=== PATIENT | male | born 1945 | race Caucasian/White ===

== ENCOUNTER → 2016-12-04 | Outpatient (CLI) | payer OTHER, MEDICARE ==
[~2016-12-04] MED LIST: /PANT40TA OR; /ZIAC5TA AD; ALLO100T PO; ASPI81TA45 OR; CIAL5TAB PO; COLA100C2 OR; DOCU250C PO; LASI20TA PO; LASI40TA OR; LOSA25TA8 PO; LYRICA PO; MECL25CH PO; MECL25TA2 OR; MULTTAB4 PO; NAPR375T PO; NIZO2SHA TOP; NIZORAL 2% TOP; OXYBPOW PO; PENC1CR TOP; PRAV20TA2 OR; PROZ20CA OR; SING10TA32 PO; VIAG100T PO; VICO5TAB OR; VICODIN PO; ZEST20TA8 PO; [UNRECOGNIZED DRUG - OTHER]
[2016-12-04 17:14] LABS: ANION GAP 7 MEQ/L (8-16); BLOOD UREA NITROGEN 29 MG/DL (7-18); CALCIUM LEVEL 8.7 MG/DL (8.8-10.2); CARBON DIOXIDE LEVEL 33 MEQ/L (21-32); CHLORIDE LEVEL 105 MEQ/L (98-107); CREATININE FOR GFR 1.22 MG/DL (0.70-1.30); GLOMERULAR FILTRATION RATE > 60.0 (>42); GLUCOSE, FASTING 121 MG/DL (83-110); PHOSPHORUS LEVEL 2.9 MG/DL (2.5-4.9); POTASSIUM SERUM 3.8 MEQ/L (3.5-5.1); SODIUM LEVEL 145 MEQ/L (136-145)
[2016-12-04 18:16] LABS: BASO % 0.7 % (0.0-1.0); EOS # 0.1 K/mm3 (0.0-0.50); EOS % 1.8 % (0.0-3.0); LARGE UNSTAINED CELL # 0.1 K/mm3 (0.0-0.4); LARGE UNSTAINED CELL % 1.8 % (0.0-4.0); LYMPH # 2.1 K/mm3 (1.5-4.5); MEAN CORPUSCULAR HEMOGLOBIN 32.9 pg (27.0-33.0); MEAN CORPUSCULAR VOLUME 102.6 fl (80.0-96.0); MONO # 0.4 K/mm3 (0.0-0.8); MONO % 5.5 % (0.0-5.0); NEUTROPHILS # 4.6 K/mm3 (1.8-7.7); NEUTROPHILS % 63.2 % (36.0-66.0); PLATELET COUNT, AUTOMATED 167 k/mm3 (150-450); WHITE BLOOD COUNT 7.2 K/mm3 (4.0-10.0)
== END ==
LOC: M WUC 13:31
PROVIDERS: ATTEND Physician Assistant
DX: R07.2 Precordial pain (principal)

== ENCOUNTER → 2017-04-15 | Outpatient (CLI) | payer OTHER, MEDICARE | LOC: M SMT 09:24 | PROVIDERS: ATTEND Urology | DX: R35.0 Frequency of micturition (principal) ==

== ENCOUNTER → 2017-07-02 | Outpatient (CLI) | payer OTHER, MEDICARE ==
[~2017-07-02] MED LIST changes: +BENT10CA PO; +CHLO125TA PO; +DEXI60CA2 PO; -DOCU250C PO; +DOCU250C7 PO; +LOSA100T36 PO; +MECL1CHW2 PO; -MECL25CH PO; +MYRB50TA PO; +NAPR500T3 PO
--- NOTE | 2017-07-03 09:46 | REP ---
Clinical: Transient ischemic attack with history of hypertension. Technique: Bustamante scale and color Doppler evaluation using linear high frequency transducer Findings: Two-dimensional bustamante scale and color images demonstrate moderate intimal thickening and mixed atheromatous plaquing extending to the carotid bulbs and proximal internal carotid arteries (right greater than left). Normal laminar flow is appreciated bilaterally with minimal narrowing at the right carotid bulb/proximal internal carotid artery. Color Doppler interrogation demonstrates normal arterial wave patterns and velocities with mild spectral broadening. Normal flow direction is appreciated in the bilateral vertebral arteries. RIGHT (cm/s) LEFT (cm/s) ICA peak systolic velocity 43.3 53.2 ICA diastolic velocity 19.5 16.2 ECA peak systolic velocity 83.3 93.2 CCA peak systolic velocity 71.5 88.9 ICA/CCA ratio 0.6 0.6 Impression: No hemodynamically significant areas of narrowing or stenosis appreciated. Based on set standards narrowing falls within the less than 50% range (R > L). Signed by Jace Berrios MD 07/03/2017 09:37 A
== END ==
LOC: M RAD 16:11
PROVIDERS: ATTEND Ophthalmology
DX: I10 Essential (primary) hypertension (principal); Z86.73 Personal history of transient ischemic attack (TIA), and cerebral infarction without residual deficits

== ENCOUNTER → 2017-12-03 | Outpatient (CLI) | payer OTHER, MEDICARE | LOC: M PLARAD 08:52 | DX: M47.812 Spondylosis without myelopathy or radiculopathy, cervical region (principal) | CPT/HCPCS: 72141 ==

== ENCOUNTER → 2018-01-07 | Outpatient (REF) | payer MEDICARE, OTHER ==
[2018-01-07 13:40] LABS: APPEARANCE, URINE CLEAR (CLEAR); BACTERIA, URINE AUTO NEGATIVE (NEGATIVE); BILIRUBIN, URINE AUTO NEGATIVE (NEGATIVE); BLOOD, URINE BLOOD NEGATIVE (NEGATIVE); COLOR, URINE YELLOW (YELLOW); GLUCOSE, URINE (UA) AUTO NEGATIVE (NEGATIVE); KETONE, URINE AUTO NEGATIVE (NEGATIVE); LEUKOCYTE ESTERASE, URINE AUTO NEGATIVE (NEGATIVE); MUCUS, URINE SMALL (NEGATIVE); NITRITE, URINE AUTO NEGATIVE (NEGATIVE); PROTEIN, URINE AUTO NEGATIVE (NEGATIVE); RBC, URINE AUTO 0 /HPF (0-3); SPECIFIC GRAVITY URINE AUTO 1.016 (1.002-1.035); SQUAMOUS EPITHELIAL CELL UR AU 0 /HPF (0-6); UROBILINOGEN, URINE AUTO 0.2 mg/dL (0.0-2.0); WBC, URINE AUTO 1 /HPF (0-3)
== END ==
LOC: M SMT 13:12
DX: N40.1 Benign prostatic hyperplasia with lower urinary tract symptoms (principal)
CPT/HCPCS: 81001

== ENCOUNTER → 2018-01-10 | Outpatient (CLI) | payer OTHER, MEDICARE | LOC: M PLARAD 10:03 | DX: M51.37 Other intervertebral disc degeneration, lumbosacral region (principal); M48.061 Spinal stenosis, lumbar region without neurogenic claudication; M51.27 Other intervertebral disc displacement, lumbosacral region | CPT/HCPCS: 72148 ==

== ENCOUNTER → 2018-03-03 | Outpatient (REF) | payer OTHER, MEDICARE ==
[2018-03-03 12:44] LABS: HEMATOCRIT 44.5 % (42.0-52.0); HEMOGLOBIN 15.2 g/dl (13.5-17.5); MEAN CORPUSCULAR HEMOGLOBIN 33.7 pg (27.0-33.0); MEAN CORPUSCULAR HGB CONC 34.2 g/dl (32.0-36.5); MEAN CORPUSCULAR VOLUME 98.7 fl (80.0-96.0); PLATELET COUNT, AUTOMATED 167 10^3/uL (150-450); RED BLOOD COUNT 4.51 10^6/uL (4.30-6.10); WHITE BLOOD COUNT 7.6 10^3/uL (4.0-10.0)
[2018-03-03 14:15] LABS: THYROID STIMULATING HORMONE 0.808 uIU/ML (0.358-3.740)
[2018-03-03 14:15] LABS: MAGNESIUM LEVEL 2.2 MG/DL (1.8-2.4)
== END ==
LOC: M LABDRAW1 12:03
DX: R00.2 Palpitations (principal)

== ENCOUNTER 2018-03-21 16:02 | Emergency (ER) | payer OTHER, MEDICARE | END 2018-03-21 19:00 | disposition home or self-care (01) | LOC: M ED 16:02 | DX: S83.92XA Sprain of unspecified site of left knee, initial encounter (principal); X50.1XXA Overexertion from prolonged static or awkward postures, initial encounter; Y92.098 Other place in other non-institutional residence as the place of occurrence of the external cause; I10 Essential (primary) hypertension; Z88.8 Allergy status to other drugs, medicaments and biological substances; Z79.899 Other long term (current) drug therapy; Z79.82 Long term (current) use of aspirin | CPT/HCPCS: 73564 ==

== ENCOUNTER → 2018-04-08 | Outpatient (REF) | payer OTHER, MEDICARE ==
[2018-04-08 11:06] LABS: BASO % 0.4 % (0.0-1.0); EOS # 0.1 10^3/uL (0.0-0.50); EOS % 1.7 % (0.0-3.0); HEMATOCRIT 44.6 % (42.0-52.0); IMMATURE GRANULOCYTE % 0.3 % (0-3.0); LYMPH # 1.9 10^3/uL (1.5-4.5); LYMPH % 25.7 % (24.0-44.0); MEAN CORPUSCULAR HEMOGLOBIN 32.8 pg (27.0-33.0); MEAN CORPUSCULAR HGB CONC 33.6 g/dl (32.0-36.5); MEAN CORPUSCULAR VOLUME 97.6 fl (80.0-96.0); MONO # 0.7 10^3/uL (0.0-0.8); MONO % 9.6 % (0.0-5.0); NEUTROPHILS # 4.5 10^3/uL (1.8-7.7); NEUTROPHILS % 62.3 % (36.0-66.0); PLATELET COUNT, AUTOMATED 183 10^3/uL (150-450); RED BLOOD COUNT 4.57 10^6/uL (4.30-6.10); RED CELL DISTRIBUTION WIDTH 12.8 % (11.5-14.5); WHITE BLOOD COUNT 7.2 10^3/uL (4.0-10.0)
[2018-04-08 11:16] LABS: ANION GAP 8 MEQ/L (8-16); BLOOD UREA NITROGEN 31 MG/DL (7-18); CALCIUM LEVEL 9.1 MG/DL (8.8-10.2); CARBON DIOXIDE LEVEL 30 MEQ/L (21-32); CHLORIDE LEVEL 102 MEQ/L (98-107); CREATININE FOR GFR 1.21 MG/DL (0.70-1.30); GLOMERULAR FILTRATION RATE > 60.0 (>42); GLUCOSE, FASTING 104 MG/DL (70-100); SODIUM LEVEL 140 MEQ/L (136-145)
== END ==
LOC: M LABDRAW1 09:03
DX: M48.061 Spinal stenosis, lumbar region without neurogenic claudication (principal)

== ENCOUNTER → 2018-04-22 | Outpatient (CLI) | payer OTHER, MEDICARE | LOC: M SMT 15:02 | DX: Z12.5 Encounter for screening for malignant neoplasm of prostate (principal) | CPT/HCPCS: G0103 ==

== ENCOUNTER → 2018-04-22 | Outpatient (CLI) | payer OTHER, MEDICARE | LOC: M PLARAD 10:23 | DX: S83.282A Other tear of lateral meniscus, current injury, left knee, initial encounter (principal); X58.XXXA Exposure to other specified factors, initial encounter; Y92.89 Other specified places as the place of occurrence of the external cause | CPT/HCPCS: 73721 ==

== ENCOUNTER → 2018-05-13 | Outpatient (CLI) | payer OTHER, MEDICARE | LOC: M PLARAD 07:58 | DX: M48.061 Spinal stenosis, lumbar region without neurogenic claudication (principal); Z53.8 Procedure and treatment not carried out for other reasons ==

== ENCOUNTER → 2018-05-19 | Outpatient (CLI) | payer OTHER, MEDICARE | LOC: M RAD 07:51 | DX: M48.061 Spinal stenosis, lumbar region without neurogenic claudication (principal); M51.26 Other intervertebral disc displacement, lumbar region | CPT/HCPCS: 72148 ==

== ENCOUNTER → 2018-12-16 | Outpatient (CLI) | payer BC, MEDICARE, OTHER ==
[~2018-12-16] MED LIST changes: -LASI20TA PO; +LASI20TA3 PO; -LOSA100T36 PO; +LOSA100T50 PO; +LOSA25TA14 PO; -LOSA25TA8 PO; +NAPR-885 PO; -NAPR500T3 PO; +ONDA4TAB5
--- NOTE | 2018-12-16 14:24 | REP ---
MRI PELVIS: MRI pelvis performed utilizing multiple sequences in the axial, coronal, and sagittal planes. No IV contrast was administered. Images are centered on the sacrum and coccyx. No abnormal bone marrow signal seen in the visualized osseous structures. There is no occult fracture. Sacroiliac joints demonstrate no abnormal signal. No adenopathy or mass is seen in the deep pelvis. No fluid or fluid collection is seen. IMPRESSION: Negative MRI sacrum and coccyx region. Unreviewed
== END ==
LOC: M PLARAD 11:57
PROVIDERS: ATTEND Physical Medicine & Rehabilitation
DX: M48.061 Spinal stenosis, lumbar region without neurogenic claudication (principal)

== ENCOUNTER → 2019-05-12 | Outpatient (CLI) | payer OTHER ==
[~2019-05-12] MED LIST changes: -/PANT40TA OR; -/ZIAC5TA AD; +ASPI81CH49 PO; +CHOL100029 PO; +CYCL10TA PO; +MECL1CHW PO; -MECL1CHW2 PO; +MOBI4TAB PO; +ONDA-83 PO; -ONDA4TAB5; +PANT40TA3 PO; +PRED20TA PO; +PROT1TAB2 OR; +ROSU10TA6 PO; +TADA5TAB; +ZIAC1TAB AD; +tylenol arthritis
--- NOTE | 2019-05-17 16:19 | REPVR ---
EXAM: MR Lumbar Spine Without Contrast. EXAM DATE/TIME: 05/12/2019 12:00 PM CLINICAL HISTORY: 73 years old, male; Low back pain; Additional info: Spinal stenosis TECHNIQUE: Imaging protocol: Multiplanar magnetic resonance images of the lumbar spine without intravenous contrast. COMPARISON: MRI-Spine, L.S. without con 05/19/2018 8:48 AM FINDINGS: Vertebrae: Multiple age-indeterminate Schmorl's nodes demonstrated from L2-L4 with loss of vertebral height at L4. Spinal cord: Unremarkable. L1-L2: No significant disc disease. No significant spinal stenosis. L2-L3: There is a moderate to severe central spinal stenosis at L2-3 secondary to diffuse annular bulging, thickened ligamentum flavum and facet joint arthropathy. Mild left-sided foraminal stenosis. No lateral recess stenosis. Marked annular bulging bilaterally may impinge on the exiting nerve roots far laterally. L3-L4: There is a moderate to severe central spinal stenosis at L3-4 secondary to diffuse annular bulging, thickened ligamentum flavum and facet joint arthropathy. Mild bilateral foraminal stenosis. No lateral recess stenosis. Marked annular bulging bilaterally maintained on the exiting nerve roots far laterally. L4-L5: There is a mild central spinal stenosis at L4-5 secondary to diffuse annular bulging, thickened ligamentum flavum and facet joint arthropathy. Mild bilateral foraminal stenosis. No lateral recess stenosis. Marked annular bulge may impinge on the right exiting nerve root far laterally. L5-S1: Diffusely bulging annulus at L5-S1. Bilateral facet joint arthropathy. No significant spinal stenosis. Severe foraminal stenosis on the right and moderate foraminal stenosis on the left. Mild lateral recess stenosis. Marked annular bulge may impinge on the right exiting nerve root far laterally. Other bones/joints: Decreased marrow signal on T1-weighted images may indicate underlying chronic anemia or myeloproliferative disorder. Soft tissues: Unremarkable. IMPRESSION: 1. Decreased marrow signal on T1-weighted images may indicate underlying chronic anemia or myeloproliferative disorder. 2. Diffuse degenerative spondylosis in the lumbar spine with moderate to severe central spinal stenoses at L2-3, L3-4 and L4-5. Multilevel foraminal stenosis demonstrated as described above as well as marked annular bulging at multiple levels which may impinge on the exiting nerve roots far laterally as described above. Electronically signed by: James Caballero On 05/17/2019 16:19:04 PM
== END ==
LOC: M PLARAD 10:56
PROVIDERS: ATTEND Physical Medicine & Rehabilitation
DX: M51.46 Schmorl's nodes, lumbar region (principal); M48.061 Spinal stenosis, lumbar region without neurogenic claudication; M51.26 Other intervertebral disc displacement, lumbar region; M51.27 Other intervertebral disc displacement, lumbosacral region

== ENCOUNTER → 2019-06-05 | Outpatient (CLI) | payer MEDICARE ==
[~2019-06-05] MED LIST changes: -CHOL100029 PO; -CYCL10TA PO; -MOBI4TAB PO; -ONDA-83 PO; +ONDA4TAB5 PO; -PRED20TA PO; -TADA5TAB; +VITAD1000T PO; -tylenol arthritis
--- NOTE | 2019-06-05 14:02 | REP ---
REASON: Bone marrow disorder. AP view of the skull shows no evidence of a lytic or blastic lesion. AP and lateral views of the cervical spine show degenerative changes with bridging anterior osteophytosis seen C4-5 and C5-6. There is no evidence of a lytic or blastic lesion. Lateral view of the skull shows a single lucency at the vertex possibly a venous jordan. AP thoracolumbar spine shows syndesmophyte formation throughout the right side of the thoracolumbar spine. There is disc space narrowing at every level. AP pelvis shows degenerative changes involving the hips. Right femur shows no acute fracture or destructive osseous lesions. Hip and knee degenerative changes are present. AP view of the left femur shows hip and knee degenerative changes. There is no destructive osseous lesion. AP radiograph of the humerus bilaterally shows chronic changes. No destructive osseous lesion is noted. Lateral views or the thoracolumbar spine shows diffuse disc space narrowing at every level. There is no vertebral body collapse. Degenerative facet joint changes are seen through the lumbar spine bilaterally. IMPRESSION: 1. Chronic changes involving the thoracolumbar spine as described above suggestive of DISH. This should be correlated clinically. 2. Single lucency seen in the vertex of the skull on the lateral view as described above. Consider followup with CT. 3. Other chronic changes as described above. Electronically Signed by Sandro Stone DO 06/05/2019 02:21 P
== END ==
LOC: M LAB 10:00
PROVIDERS: ATTEND Internal Medicine
DX: R93.7 Abnormal findings on diagnostic imaging of other parts of musculoskeletal system (principal)

== ENCOUNTER 2019-06-07 11:55 | Day surgery (SDC) | payer MEDICARE ==
[~2019-06-07] VITALS: Ht 177.8 cm; Wt 124.6 kg
[~2019-06-07 11:55] MED LIST changes: +CHOL100029 PO; +LIDOCAINE 2% INJ 100 MG/5 ML SDV (FOR ANES.) As Ordered ONE; +ONDA-83 PO; -ONDA4TAB5 PO; -VITAD1000T PO; +propofoL 200 MG/20 ML VIAL As Ordered ONE
[2019-06-07] MEDS ORDERED: propofoL 200 MG/20 ML VIAL As Ordered ONE (13:08)
[2019-06-07] MEDS ORDERED: NS 1,000 ML IV SCH (13:15)
[2019-06-07 14:40] VITALS: BP 169/80
--- NOTE | 2019-06-12 08:45 | MEDONCPN ---
DATE OF SERVICE: 06/07/2019 REASON FOR VISIT: Bone marrow biopsy and procedure to be done under sedation in the OR. TIME: 2:00 p.m. INDICATION: As per previous report. A time out and call to confirm patient's name and date of , procedure site and site of biopsy. Safety procedures followed. Performed by self and assisted by Dr. Nalini Stewart. Informed consent signed by the patient. Aspiration and biopsy site, in the prone position to palpate the left iliac crest after having the patient sedated and the patient was then in position. The procedure was deemed unable to be done in the OR and he requires interventional radiology to perform the procedure with sedation. The patient was seen and he was advised that we aborted the procedure, and my staff and Dr. Stewart, we counseled the patient and the spouse. They both voiced understanding and agreed with the above plan. PREPARATION AND TECHNIQUE: Sterile preparation of the site with Betadine and ChloraPrep and draped to expose the aspirate/biopsy area, local anesthesia with 2% lidocaine. Electronically Signed by Matt Michelle MD 06/18/2019 11:34 P DD: Matt Michelle MD 06/07/2019 04:44 P DT: pinky 06/09/2019 10:47 A CC:
== END 2019-06-07 14:42 | disposition home or self-care (01) ==
LOC: M OPP 11:55
PROVIDERS: ATTEND Internal Medicine
DX: D47.2 Monoclonal gammopathy (principal); R93.7 Abnormal findings on diagnostic imaging of other parts of musculoskeletal system; I10 Essential (primary) hypertension; E78.5 Hyperlipidemia, unspecified; K58.9 Irritable bowel syndrome, unspecified; K21.9 Gastro-esophageal reflux disease without esophagitis; M19.90 Unspecified osteoarthritis, unspecified site; M48.00 Spinal stenosis, site unspecified; G47.30 Sleep apnea, unspecified; R35.0 Frequency of micturition; Z88.8 Allergy status to other drugs, medicaments and biological substances; Z79.82 Long term (current) use of aspirin; Z79.899 Other long term (current) drug therapy

== ENCOUNTER → 2019-06-09 | Outpatient (CLI) | payer MEDICARE ==
[~2019-06-09] MED LIST changes: +CYCL10TA PO; -LIDOCAINE 2% INJ 100 MG/5 ML SDV (FOR ANES.) As Ordered ONE; +MOBI4TAB PO; +PRED20TA PO; +TADA5TAB; -propofoL 200 MG/20 ML VIAL As Ordered ONE; +tylenol arthritis
--- NOTE | 2019-06-09 09:46 | REP ---
LEFT UPPER QUADRANT ULTRASOUND: Real-time sonographic of the left upper quadrant performed. Spleen is normal in size with no intrinsic abnormality, measuring 11.3 x 3.7 x 10.3 cm. Left kidney is normal in size and echotexture measuring 12.3 x 6.3 x 5.4 cm. Multiple left renal cysts are seen, with a septated cyst in the upper pole 4.4 x 3.6 x 5.3 cm and two adjacent upper pole cysts 1.2 x 1.8 x 1.4 cm and 1.5 x 1.3 x 1.4 cm. No free fluid is seen in the left upper quadrant. IMPRESSION: No evidence of splenomegaly. Electronically Signed by Cb Bustamante MD 06/12/2019 11:13 A
== END ==
LOC: M RAD 07:54
PROVIDERS: ATTEND Internal Medicine
DX: Z86.2 Personal history of diseases of the blood and blood-forming organs and certain disorders involving the immune mechanism (principal)

== ENCOUNTER 2019-08-29 10:55 | Emergency (ER) | payer MEDICARE ==
[~2019-08-29] VITALS: Ht 177.8 cm; Wt 124.2 kg
[~2019-08-29 10:55] MED LIST changes: -CYCL10TA PO; -MOBI4TAB PO; -ONDA-83 PO; +ONDA4TAB5 PO; -PRED20TA PO; -TADA5TAB; -tylenol arthritis
[2019-08-29 10:56] VITALS: BP 133/72
[2019-08-29] MEDS ORDERED: TADA5TAB (11:04)
[2019-08-29] MEDS ORDERED: tylenol arthritis (11:05)
[2019-08-29] MEDS ORDERED: CYCL10TA PO (11:48)
[2019-08-29] MEDS ORDERED: PRED20TA PO (11:48)
[2019-08-29] MEDS ORDERED: MOBI4TAB PO (11:48)
== END 2019-08-29 11:56 | disposition home or self-care (01) ==
LOC: M ED 10:55
DX: M54.2 Cervicalgia (principal); M62.830 Muscle spasm of back; Z88.8 Allergy status to other drugs, medicaments and biological substances; I10 Essential (primary) hypertension; I95.9 Hypotension, unspecified; G47.30 Sleep apnea, unspecified; M10.9 Gout, unspecified; Z79.899 Other long term (current) drug therapy; Z79.82 Long term (current) use of aspirin

== ENCOUNTER → 2020-05-02 | Outpatient (CLI) | payer MEDICARE ==
[~2020-05-02] MED LIST changes: +ALBU8.5H INH; +COLA100C5 PO; +CRES10TA PO; +CYCL-707 PO; +EQ 8650T PO; +FLON1SPR; +MECL-86 PO; +MOBI4TAB PO; +MULT1TAB74 PO; +ONDA-83 PO; -ONDA4TAB5 PO; +PRED20TA PO; +TADA5TAB PO; +VITAD1000T PO; +tylenol arthritis
== END ==
LOC: M LABSMTC 12:45
PROVIDERS: ATTEND Anesthesiology
DX: Z03.818 Encounter for observation for suspected exposure to other biological agents ruled out (principal); Z11.59 Encounter for screening for other viral diseases
CPT/HCPCS: C9803; U0003

== ENCOUNTER 2020-05-07 06:57 | Day surgery (SDC) | payer MEDICARE ==
[~2020-05-07] VITALS: Ht 177.8 cm; Wt 126.1 kg
[~2020-05-07 06:57] MED LIST changes: +D31000TA2 PO; -FLON1SPR; +FLON1SPR NARES; +PANT40TA29 PO; -PANT40TA3 PO; -VITAD1000T PO
[2020-05-07] MEDS ORDERED: NS 1,000 ML IV ONE (07:00)
[2020-05-07] MEDS ORDERED: LIDOCAINE 2% 100MG/5ML SDV (FOR ANES.) As Ordered ONE (07:07)
[2020-05-07] MEDS ORDERED: propofoL 200 MG/20 ML VIAL As Ordered ONE (07:07)
[2020-05-07] MEDS ORDERED: fentaNYL 100 MCG/2 ML INJECTION (J3010) As Ordered ONE (08:06)
--- NOTE | 2020-05-07 08:23 | ROOR ---
Patient Name: Kal Eason Procedure Date: 05/07/2020 8:04 AM Date of : 1945 Age: 74 Room: [facility] Gender: Male Note Status: Finalized Procedure: Upper Endoscopy + Biopsies Indications: Heartburn, Follow-up of Barrios's esophagus Providers: Shawn Tan MD Referring MD: CHRISTOFER MCGUIRE MD Requesting Provider: Medicines: Monitored Anesthesia Care Complications: No immediate complications. Procedure: Pre-Anesthesia Assessment: - The heart rate, respiratory rate, oxygen saturations, blood pressure, adequacy of pulmonary ventilation, and response to care were monitored throughout the procedure. The Endoscope was introduced through the mouth, and advanced to the second part of duodenum. The upper GI endoscopy was accomplished without difficulty. The patient tolerated the procedure well. Findings: The Z-line was variable and was found 40 cm from the incisors. Multiple biopsies were obtained with cold forceps for evaluation to rule out Barrios's Esophagus randomly at the gastroesophageal junction. A small hiatal hernia was present. No other significant abnormalities were identified in a careful examination of the stomach. The exam of the duodenum was otherwise normal. Impression: - Z-line variable, 40 cm from the incisors. - Small hiatal hernia. - Multiple biopsies were obtained at the gastroesophageal junction. - The examination was otherwise normal. Recommendation: - Patient has a contact number available for emergencies. The signs and symptoms of potential delayed complications were discussed with the patient. Return to normal activities tomorrow. Written discharge instructions were provided to the patient. - High fiber diet. - Discharge patient to home. - Follow an antireflux regimen. - Continue present medications. - Await pathology results. - Telephone GI clinic for pathology results in 1 week. - The findings and recommendations were discussed with the patient. Shawn Tan MD Shawn Tan MD 05/07/2020 8:22:27 AM Electronically signed by Shawn Tan MD Number of Addenda: 0 Note Initiated On: 05/07/2020 8:04 AM Estimated Blood Loss: Estimated blood loss: none.
[2020-05-07 08:40] VITALS: BP 14/76
== END 2020-05-07 08:55 | disposition home or self-care (01) ==
LOC: M OPP 06:57
PROVIDERS: ATTEND Internal Medicine Gastroenterology
DX: K22.8 Other specified diseases of esophagus (principal); K44.9 Diaphragmatic hernia without obstruction or gangrene; K22.70 Barrett's esophagus without dysplasia; I10 Essential (primary) hypertension; G47.30 Sleep apnea, unspecified; Z79.82 Long term (current) use of aspirin; Z79.899 Other long term (current) drug therapy; Z88.8 Allergy status to other drugs, medicaments and biological substances
CPT/HCPCS: 43239; 88305; J3010

== ENCOUNTER 2020-06-21 09:07 | Observation (INO) | payer MEDICARE ==
[~2020-06-21] VITALS: Ht 177.8 cm; Wt 76.3 kg
[2020-06-21] MEDS ORDERED: [UNRECOGNIZED DRUG - CODE] PO (09:39)
[2020-06-21 09:48] LABS: BASO % 0.4 % (0.0-1.0); EOS # 0.2 10^3/uL (0.0-0.5); EOS % 1.6 % (0.0-3.0); HEMATOCRIT 46.9 % (42.0-52.0); HEMOGLOBIN 16.1 g/dl (13.5-17.5); LYMPH # 1.8 10^3/uL (1.5-5.0); LYMPH % 18.8 % (24.0-44.0); MEAN CORPUSCULAR HEMOGLOBIN 33.8 pg (27.0-33.0); MEAN CORPUSCULAR HGB CONC 34.3 g/dl (32.0-36.5); MEAN CORPUSCULAR VOLUME 98.5 fl (80.0-96.0); MONO # 0.8 10^3/uL (0.0-0.8); MONO % 8.1 % (0.0-5.0); NEUTROPHILS # 6.6 10^3/uL (1.5-8.5); NEUTROPHILS % 70.7 % (36.0-66.0); PLATELET COUNT, AUTOMATED 188 10^3/uL (150-450); RED BLOOD COUNT 4.76 10^6/uL (4.30-6.10); WHITE BLOOD COUNT 9.4 10^3/uL (4.0-10.0)
[2020-06-21] MEDS ORDERED: ONDANSETRON 4MG/2ML VIAL IV ONE (10:00)
--- NOTE | 2020-06-21 10:07 | REPVR ---
PROCEDURE INFORMATION: Exam: CT Head Without Contrast Exam date and time: 06/21/2020 9:47 AM Age: 74 years old Clinical indication: Dizziness; Additional info: Off balance TECHNIQUE: Imaging protocol: Computed tomography of the head without contrast. Radiation optimization: All CT scans at this facility use at least one of these dose optimization techniques: automated exposure control; mA and/or kV adjustment per patient size (includes targeted exams where dose is matched to clinical indication); or iterative reconstruction. COMPARISON: No relevant prior studies available. FINDINGS: Brain: There is no acute intracranial hemorrhage. No extra-axial fluid collection. No evidence of acute infarct. Bustamante white differentiation is intact. There is no evidence of mass. There is no mass effect or midline shift. Ventricles: No ventriculomegaly. Bones/joints: No acute fracture. Sinuses: Unremarkable as visualized. No acute sinusitis. Mastoid air cells: Mastoid air cells and middle ear cavities are well developed and well aerated. Vasculature: There are carotid arteries calcifications. Soft tissues: Unremarkable as visualized. IMPRESSION: No evidence of acute intracranial abnormality. Electronically signed by: Kiersten Finnegan On 06/21/2020 10:07:43 AM
[2020-06-21 10:15] LABS: CALCIUM LEVEL 9.2 MG/DL (8.8-10.2); CREATININE FOR GFR 1.25 MG/DL (0.70-1.30); GLOMERULAR FILTRATION RATE 59.9 (>42); POTASSIUM SERUM 3.5 MEQ/L (3.5-5.1)
[2020-06-21] MEDS ORDERED: CHLORTHALIDONE 12.5MG PER 1/2 TABLET PO ONE (10:15)
[2020-06-21] MEDS ORDERED: LOSARTAN 50MG TABLET PO ONE (10:15)
[2020-06-21] MEDS ORDERED: diazePAM 10MG/2ML SYRINGE (J3360 PER 5MG) IV ONE (11:00)
--- NOTE | 2020-06-21 12:44 | REPVR ---
PROCEDURE INFORMATION: Exam: MR Head Without Contrast Exam date and time: 06/21/2020 12:27 PM Age: 74 years old Clinical indication: Dizziness and speech disturbance; Patient HX: Dizziness, slurred speech that has since subsided; Additional info: Ataxia TECHNIQUE: Imaging protocol: MR of the head without contrast. COMPARISON: CT Head without contrast 06/21/2020 9:49 AM FINDINGS: Brain: No significant white matter disease for patient's age. Diffusion images are normal. No evidence of acute infarction. No evidence of acute intracranial hemorrhage. No extra-axial fluid collections. Ventricles and cerebrospinal fluid spaces are normal in size and configuration for the patient's age. There is no evidence of mass-effect or midline shift. Flow voids of the [place] and major cerebral vascular structures appear intact. Craniocervical junction appears unremarkable, with normal position of cerebellar tonsils and no evidence of Chiari I malformation. Ventricles: No evidence of hydrocephalus Bones/joints: Unremarkable as visualized. Sinuses: Unremarkable as visualized. No acute sinusitis. Mastoid air cells: No significant mastoid effusion. Orbits: Unremarkable as visualized. No exophthalmos or evidence of mass. Soft tissues: Unremarkable as visualized. IMPRESSION: 1. Unremarkable brain MRI for age. No acute infarct, acute hemorrhage, or evidence of mass lesion. 2. Given the patient's clinical history and / or findings on MRI, MRA to assess the intracranial vascular system would be appropriate. Electronically signed by: Kiersten Finnegan On 06/21/2020 12:44:47 PM
--- NOTE | 2020-06-21 12:44 | REPVR ---
PROCEDURE INFORMATION: Exam: MR Angiogram Head Without Contrast, Arteries Exam date and time: 06/21/2020 12:27 PM Age: 74 years old Clinical indication: Dizziness and giddiness; Patient HX: Dizziness, slurred speech that has since subsided; Additional info: Ataxia TECHNIQUE: Imaging protocol: MR angiogram head without contrast. Exam focused on the arteries. 3D rendering (Not supervised by radiologist): MIP and/or 3D reconstructed images were created by the technologist. COMPARISON: CT Head without contrast 06/21/2020 9:49 AM FINDINGS: ANTERIOR CIRCULATION: Right internal carotid artery: Intracranial segment is patent with no significant stenosis. No aneurysm. Right middle cerebral artery: No occlusion or significant stenosis. No aneurysm. Right anterior cerebral artery: No occlusion or significant stenosis. No aneurysm. Left internal carotid artery: Intracranial segment is patent with no significant stenosis. No aneurysm. Left middle cerebral artery: No occlusion or significant stenosis. No aneurysm. Left anterior cerebral artery: No occlusion or significant stenosis. No aneurysm. POSTERIOR CIRCULATION: Right vertebral artery: No occlusion or significant stenosis. No aneurysm. Left vertebral artery: No occlusion or significant stenosis. No aneurysm. Basilar artery: No occlusion or significant stenosis. No aneurysm. Patent superior cerebellar arteries. Right posterior cerebral artery: No occlusion or significant stenosis. No aneurysm. Left posterior cerebral artery: No occlusion or significant stenosis. No aneurysm. IMPRESSION: No stenosis or occlusion. Unremarkable MRA. Electronically signed by: Kiersten Finnegan On 06/21/2020 12:44:17 PM
[2020-06-21] MEDS ORDERED: MECLIZINE 25 MG TABLET PO ONE (15:30)
[2020-06-21] MEDS ORDERED: CHLO25TA PO (16:03)
[2020-06-21] MEDS ORDERED: ASPI81TA26 PO (16:03)
[2020-06-21] MEDS ORDERED: ACETAMINOPHEN TAB 650MG DOSE (2X325MG) PO PRN (17:00)
[2020-06-21] MEDS ORDERED: diazePAM 5 MG TAB PO PRN (18:15)
[2020-06-21] MEDS ORDERED: PILL CUTTER 1 EACH XX PRN (18:30)
--- NOTE | 2020-06-21 18:36 | HPEPDOC ---
General Date of Admission Jun 21, 2020 at 09:08 Date of Service: Jun 21, 2020 Chief Complaint The patient is a 74-year-old male admitted with a reason for visit of Vertigo. History of Present Illness 74 year old man with history of meniere's disease, hypertension, presented to hospital due to vertigo that started yesterday morning. patient had a right knee injection as outpatient and then came home. He woke up with sudden onset of vertigo, lightheaded. He took dramamine, every 8 hours without much benefit. HE did not take his BP meds because he felt that if he drinks water, he will start to vomit which usually happens when he has an attack of meniere's. He thought he would improved but this morning, he continues to be dizzy and thus came to hospital. He has chronic tinnitus, and hearing loss. he denies any weakness, or numbness (aside from the chronic right leg numbness due to spinal stenosis). No chest pain, no dyspnea. No diarrhea. No vomiting. He did not take any new medications. No recent trauma. He did mention that back in january he heard a pop on the right jaw, and was told it could be his TMJ. No claudication noted. no headache. No confusion. His gait was said to be abnromal at home, he described it as "walking funny" like "drunk">. He does walk with a cane. PT was called for jack maneuvr, without any improvement. CT head and MRI brain and MRA was negative. HE was not comfortable ambulating thus ED called for admission. nurse informed me that patient ambulated to the bathroom with his cane well. I saw patient in ED, he is not in any distress. No vomiting noted. he says he is dizzy when turning his head but not laying still. No diplopia noted. No blurring of vision. Home Medications Scheduled Albuterol Sulfate (Albuterol Sulfate Hfa) 8.5 Gm Hfa.aer.ad, 2 PUFFS INH DAILY, (Reported) Allopurinol (Allopurinol) 100 Mg Tab, 100 MG PO DAILY, (Reported) Aspirin (Aspirin EC) 81 Mg Tablet.dr, 81 MG PO BID, (Reported) Chlorthalidone (Chlorthalidone) 25 Mg Tablet, 12.5 MG PO DAILY, (Reported) Cholecalciferol (Vitamin D3) (Vitamin D3) 1,000 Unit Tablet, 5,000 UNITS PO DAILY, (Reported) Docusate Sodium (Colace) 100 Mg Capsule, 100 MG PO BID, (Reported) Losartan Potassium (Losartan Potassium) 100 Mg Tab, 100 MG PO QHS, (Reported) Multivitamin (Multivitamins) 1 Each Tablet, 1 TAB PO DAILY, (Reported) Pantoprazole Sodium (Pantoprazole Sodium) 40 Mg Tablet.dr, 40 MG PO BID, (Reported) Rosuvastatin Calcium (Crestor) 10 Mg Tablet, 10 MG PO QHS, (Reported) Tadalafil (Tadalafil) 5 Mg Tablet, 5 MG PO DAILY, (Reported) Scheduled PRN Acetaminophen (8Hr Arthritis Pain Relief) 650 Mg Tablet.er, 650 MG PO Q8H PRN for PAIN, (Reported) Fluticasone Propionate (Flonase Allergy Relief) 9.9 Ml Mobile.susp, 50 MCG NARES DAILY PRN for CONGESTION, (Reported) Ondansetron HCl (Ondansetron HCl) 4 Mg Tab, 4 MG PO Q4H PRN for NAUSEA, (Reported) dimenhyDRINATE (Dramamine) 50 Mg Tab.chew, 50 MG PO Q2H PRN for DIZZINESS, (Reported) Allergies Coded Allergies: atorvastatin (Verified Adverse Reaction, Intermediate, JOINT PAIN, LEG CRAMPS, 04/30/20) fluvastatin (Verified Adverse Reaction, Intermediate, severe leg cramps, sore legs, 04/30/20) metoclopramide (Verified Adverse Reaction, Intermediate, PAIN IN STOMACH, 04/30/20) pregabalin (Verified Adverse Reaction, Intermediate, hand and feet swelling, 04/30/20) tizanidine (Verified Adverse Reaction, Intermediate, blurry vision , 04/30/20) Past Medical History Medical History PAST MEDICAL HISTORY: hypertension meniere's disease PAST SURGICAL HISTORY: bilateral shoulder surgery umbilical hernia repair right knee surgery no prior PCI A-FIB/CHADSVASC A-FIB History Current/History of A-Fib/PAF?: No Review of Systems Other systems 10 point review of system, reviewed with patient, negative except for HPI Vital Signs Vital Signs Date Time Temp Pulse Resp B/P (MAP) Pulse Ox O2 Delivery O2 Flow Rate FiO2 06/21/20 15:45 74 18 133/67 (89) 97 Room Air 06/21/20 09:23 96.2 general: awake, alert, oriented x 3. elderly man, appears as stated age. Not in respiratory distress HEENT: anicteric sclerae, no nasal discharges noted, no throat exudates noted EOM intact, no nystagmus, no facial asymmetry, right jaw tenderness noted EARS: TM intact bilaterally, no discharges no tragal tenderness, right tragal tenderness, no erythema Chest: clear breath sounds, no rales or wheezing noted. CVS s1 and s2 distinct, no murmurs, Abdomen: soft, obese, not tender, no rigidity noted, positive bowel sounds Extremities: No edema, no calf tenderness, no limitation of movement, no joint effusion. DEHYDRATOR: awake, alert, oriented x 3.no focal deficits, no dysmetria. CN II-XII grossly intact skin: warm , no lesions noted. Laboratory Data Labs 24H Laboratory Tests 2 06/21/20 09:27: Immature Granulocyte % (Auto) 0.4, Neutrophils (%) (Auto) 70.7H, Lymphocytes (%) (Auto) 18.8L, Monocytes (%) (Auto) 8.1H, Eosinophils (%) (Auto) 1.6, Basophils (%) (Auto) 0.4, Neutrophils # (Auto) 6.6, Lymphocytes # (Auto) 1.8, Monocytes # (Auto) 0.8, Eosinophils # (Auto) 0.2, Basophils # (Auto) 0.0, Nucleated Red Blood Cells % (auto) 0.0 06/21/20 09:29: Anion Gap 4L, Glomerular Filtration Rate 59.9, Calcium Level 9.2 CBC/BMP Laboratory Tests 06/21/20 09:27 06/21/20 09:29 Assessment/Plan reviewed labs and MRI/MRA ASSESSMENT: 1. Vertigo, could be due to meniere's disease, posterior stroke has been ruled out 2. Gait disturbance likely due to vergito 3. Hypertensive urgency, 4. obesity 38 kg/m2 PLANS: * admit patient to med surg. * telemetry due to dizziness to evaluate any arrythmias. * start on diazepam for prn dizziness. * meclizine to continue. * No intracranial aneurysm seen, no stenosis in intracranial arteries. * Resume home medications.- he received losartan and chlorthalidone in ED. BP much improved. * PT and OT eval, * if improved, and able to ambulate in AM, d/c home in Am. * FULL CODE * DVT: ambulate Plan / VTE VTE Prophylaxis Ordered?: No VTE Exclusion Mechanical Proph: Low Risk for VTE JAVIER ANDERSON MD Jun 21, 2020 18:33
[2020-06-21] MEDS ORDERED: ONDANSETRON 4MG/2ML VIAL IV PRN (19:30)
[2020-06-22] VITALS: BP 152/80
[2020-06-22 00:06] VITALS: BP 152/80
[2020-06-22 06:00] VITALS: BP 145/75
[2020-06-22] MEDS ORDERED: MECLIZINE 25 MG TABLET PO PRN (07:45)
[2020-06-22 08:38] VITALS: BP 143/84
[2020-06-22] MEDS ORDERED: ASPIRIN 81 MG ENTERIC TAB PO SCH (09:00)
[2020-06-22] MEDS ORDERED: LOSARTAN 50MG TABLET PO SCH (09:00)
[2020-06-22] MEDS ORDERED: CHLORTHALIDONE 12.5MG PER 1/2 TABLET PO SCH (09:00)
[2020-06-22 09:17] LABS: HEMATOCRIT 49.1 % (42.0-52.0); HEMOGLOBIN 16.1 g/dl (13.5-17.5); MEAN CORPUSCULAR HEMOGLOBIN 33.3 pg (27.0-33.0); MEAN CORPUSCULAR HGB CONC 32.8 g/dl (32.0-36.5); MEAN CORPUSCULAR VOLUME 101.4 fl (80.0-96.0); PLATELET COUNT, AUTOMATED 180 10^3/uL (150-450); RED BLOOD COUNT 4.84 10^6/uL (4.30-6.10); WHITE BLOOD COUNT 8.8 10^3/uL (4.0-10.0)
[2020-06-22 09:24] LABS: ALBUMIN 3.8 GM/DL (3.2-5.2); ALT/SGPT 23 U/L (12-78); BILIRUBIN,TOTAL 1.1 MG/DL (0.2-1.0); BLOOD UREA NITROGEN 26 MG/DL (7-18); CALCIUM LEVEL 9.2 MG/DL (8.8-10.2); CARBON DIOXIDE LEVEL 33 MEQ/L (21-32); CHLORIDE LEVEL 102 MEQ/L (98-107); GLOMERULAR FILTRATION RATE > 60.0 (>42); GLUCOSE, FASTING 100 MG/DL (70-100); SODIUM LEVEL 139 MEQ/L (136-145)
[2020-06-22] MEDS ORDERED: MECL-86 PO (11:24)
[2020-06-22] MEDS ORDERED: DIAZ5TAB PO (11:24)
--- NOTE | 2020-06-22 11:31 | DS.PDOC ---
Discharge Summary General Date of Admission Jun 21, 2020 at 09:08 Date of Discharge Discharge Summary PROCEDURES PERFORMED DURING STAY: MRI brain and MRA ADMITTING DIAGNOSES: 1. Dizziness DISCHARGE DIAGNOSES: 1. Vertigo, could be due to meniere's disease, posterior stroke has been ruled out 2. Gait disturbance likely due to vergito 3. Hypertensive urgency, 4. obesity 38 kg/m2 COMPLICATIONS/CHIEF COMPLAINT: Vertigo. HISTORY OF PRESENT ILLNESS: dizziness HOSPITAL COURSE: Mr Eason is a 74 year old man with known history of meniere's disease, hypertension, prsented to hospital due to worsening dizziness. Patient underwent CT head and MRI brain and MRA, negative, however, due to gait disturbance from dizziness admission. No ear findings. patient was noted to have hypertension on admission, was not able to take his meds, thus BP quite high on arrival, but once his meds were resumed it has improved. Patient was admitted and started on low dose valium to ease his dizziness which had helped improved it, that this morning, able to walk with walker now, no dizziness, no nausea or vomiting. No chest pain. Ambulated with PT today as well. Discussed that diazepam is only for as needed use and only short course therapy. No cute findings in MRI and MRA, no aneurysm or stroke. patient is stable for discharge to home, with out patient vestibula exercises PT. patietn is stable for discharge to home. DISCHARGE MEDICATIONS: Please see below. ALLERGIES: Please see below. PHYSICAL EXAMINATION ON DISCHARGE: VITAL SIGNS: Vital Sign - Last 24 Hours 06/21/20 06/21/20 06/22/20 06/22/20 12:45 15:45 00:06 06:00 Temp 97.7 98.2 Pulse 83 74 73 74 Resp 16 18 16 16 B/P (MAP) 170/79 (109) 133/67 (89) 152/80 (104) 145/75 (98) Pulse Ox 98 97 96 95 O2 Delivery Room Air Room Air Room Air Room Air 06/22/20 08:38 B/P (MAP) 143/84 patient seen at bedside, able to sit up without any assistance, no dizziness, no unsteadiness. HEENT: no nystagmus noted, no facial asymmetry Clear breath sounsd, no rales or wheezing CVS: s1 and s2 distinct, no murmurs noted Abdomen: soft, not tender, no rigidity noted Extremities: No edema, no calf tenderenss noted HARNESS BRUSHER: no focal deficits, CN II XII grossly intact, except for chronic hearing deficits LABORATORY DATA: Please see below. IMAGING: MRI Brain MRA PROGNOSIS: good ACTIVITY: [As tolerated] DIET: cardiac diet DISCHARGE PLAN: to home DISPOSITION: home DISCHARGE INSTRUCTIONS: 1. diazepam as needed. Only for short course 2. Meclizine ITEMS TO FOLLOWUP ON ON OUTPATIENT: 1. Follow up with outpatient PT DISCHARGE CONDITION: [Stable TIME SPENT ON DISCHARGE: 30 minutes Vital Signs/I&Os Vital Signs Date Time Temp Pulse Resp B/P (MAP) Pulse Ox O2 Delivery O2 Flow Rate FiO2 06/22/20 08:38 143/84 06/22/20 06:00 98.2 74 16 95 Room Air I&O- Last 24 Hours up to 6 AM 06/22/20 06:00 Intake Total 780 ml Output Total 720 ml Balance 60 ml Laboratory Data Labs 24H Laboratory Tests 2 06/22/20 08:05: Nucleated Red Blood Cells % (auto) 0.0, Anion Gap 4L, Glomerular Filtration Rate > 60.0, Calcium Level 9.2, Total Bilirubin 1.1H, Aspartate Amino Transf (AST/SGOT) 16, Alanine Aminotransferase (ALT/SGPT) 23, Alkaline Phosphatase 68, Total Protein 7.0, Albumin 3.8, Albumin/Globulin Ratio 1.2 CBC/BMP Laboratory Tests 06/22/20 08:05 Discharge Medications Scheduled Albuterol Sulfate (Albuterol Sulfate Hfa) 8.5 Gm Hfa.aer.ad, 2 PUFFS INH DAILY, (Reported) Allopurinol (Allopurinol) 100 Mg Tab, 100 MG PO DAILY, (Reported) Aspirin (Aspirin EC) 81 Mg Tablet.dr, 81 MG PO BID, (Reported) Chlorthalidone (Chlorthalidone) 25 Mg Tablet, 12.5 MG PO DAILY, (Reported) Cholecalciferol (Vitamin D3) (Vitamin D3) 1,000 Unit Tablet, 5,000 UNITS PO DAILY, (Reported) Docusate Sodium (Colace) 100 Mg Capsule, 100 MG PO BID, (Reported) Losartan Potassium (Losartan Potassium) 100 Mg Tab, 100 MG PO QHS, (Reported) Multivitamin (Multivitamins) 1 Each Tablet, 1 TAB PO DAILY, (Reported) Pantoprazole Sodium (Pantoprazole Sodium) 40 Mg Tablet.dr, 40 MG PO BID, (Reported) Rosuvastatin Calcium (Crestor) 10 Mg Tablet, 10 MG PO QHS, (Reported) Tadalafil (Tadalafil) 5 Mg Tablet, 5 MG PO DAILY, (Reported) Scheduled PRN Acetaminophen (8Hr Arthritis Pain Relief) 650 Mg Tablet.er, 650 MG PO Q8H PRN for PAIN, (Reported) Diazepam (Diazepam) 5 Mg Tablet, 2.5 MG PO Q8HP PRN for dizziness take 1/2 tab as needed q 8 hours Fluticasone Propionate (Flonase Allergy Relief) 9.9 Ml [place].susp, 50 MCG NARES DAILY PRN for CONGESTION, (Reported) Meclizine HCl (Meclizine HCl) 25 Mg Tablet, 25 MG PO Q6HP PRN for dizziness Ondansetron HCl (Ondansetron HCl) 4 Mg Tab, 4 MG PO Q4H PRN for NAUSEA, (Reported) dimenhyDRINATE (Dramamine) 50 Mg Tab.chew, 50 MG PO Q2H PRN for DIZZINESS, (Reported) Allergies Coded Allergies: atorvastatin (Verified Adverse Reaction, Intermediate, JOINT PAIN, LEG CRAMPS, 04/30/20) fluvastatin (Verified Adverse Reaction, Intermediate, severe leg cramps, sore legs, 04/30/20) metoclopramide (Verified Adverse Reaction, Intermediate, PAIN IN STOMACH, 04/30/20) pregabalin (Verified Adverse Reaction, Intermediate, hand and feet swelling, 04/30/20) tizanidine (Verified Adverse Reaction, Intermediate, blurry vision , 04/30/20) JAVIER ANDERSON MD Jun 22, 2020 11:31
--- NOTE | 2020-07-10 13:04 | ECGEPIP ---
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
== END 2020-06-22 13:36 | disposition home or self-care (01) ==
LOC: M ED 09:07 → M ED INP 09:08 → ENRESERV 23:29 → M MSPAV 06-22 00:06
PROVIDERS: ADMIT Internal Medicine; ATTEND Internal Medicine
DX: H81.09 Meniere's disease, unspecified ear (principal); I16.0 Hypertensive urgency; R26.0 Ataxic gait; E66.9 Obesity, unspecified; Z68.38 Body mass index [BMI] 38.0-38.9, adult; I10 Essential (primary) hypertension; M48.00 Spinal stenosis, site unspecified; E78.5 Hyperlipidemia, unspecified; Z99.89 Dependence on other enabling machines and devices; Z79.899 Other long term (current) drug therapy; Z79.82 Long term (current) use of aspirin; Z88.8 Allergy status to other drugs, medicaments and biological substances
CPT/HCPCS: 36415; 70450; 70544; 70551; 80048; 80053; 85025; 85027; 93005; 96374; 96375; 97112; 97116; 97161; 97530; 99285; G0378; J2405; J3360

== ENCOUNTER → 2020-07-01 | Outpatient (RCR) | payer MEDICARE ==
[~2020-07-01] MED LIST changes: +ASPI81TA26 PO; +CHLO25TA PO; +DIAZ5TAB PO; +[UNRECOGNIZED DRUG - CODE] PO
== END | disposition home or self-care (01) ==
LOC: M PT 06-24 14:09
PROVIDERS: ATTEND Internal Medicine
DX: H81.09 Meniere's disease, unspecified ear (principal); I89.0 Lymphedema, not elsewhere classified

== ENCOUNTER → 2020-07-22 | Outpatient (CLI) | payer MEDICARE ==
[2020-07-22 13:25] LABS: FOLATE > 24.0 NG/ML; VITAMIN B12 LEVEL 362 PG/ML
[2020-07-26 13:12] LABS: VITAMIN B1 LEVEL WHOLE BLOOD 139.1 nmol/L (66.5-200.0); VITAMIN B6,PYRIDOXAL PHOSPHATE 21.4 ug/L (5.3-46.7); VITAMIN E(ALPHA TOCOPHEROL) 13.3 mg/L (9.0-29.0); VITAMIN E(GAMMA TOCOPHEROL) 0.7 mg/L (0.5-4.9)
== END ==
LOC: M WUC 10:16
PROVIDERS: ATTEND Psychiatry & Neurology Neurology
DX: R20.0 Anesthesia of skin (principal); E53.9 Vitamin B deficiency, unspecified

== ENCOUNTER → 2020-07-31 | Outpatient (RCR) | payer MEDICARE | LOC: M PT 07-03 13:44 | PROVIDERS: ATTEND Internal Medicine | DX: R42 Dizziness and giddiness (principal) ==

== ENCOUNTER 2020-08-28 12:57 | Outpatient (RCR) | payer MEDICARE | END 2020-08-31 | LOC: M PT 12:57 | PROVIDERS: ATTEND Internal Medicine | DX: R42 Dizziness and giddiness (principal); I89.0 Lymphedema, not elsewhere classified ==

== ENCOUNTER 2020-09-04 13:00 | Outpatient (RCR) | payer MEDICARE | END 2020-09-30 | LOC: M PT 13:00 | PROVIDERS: ATTEND Internal Medicine | DX: R55 Syncope and collapse (principal); R42 Dizziness and giddiness ==

== ENCOUNTER → 2021-04-04 | Outpatient (CLI) | payer MEDICARE, OTHER, BC ==
[~2021-04-04] MED LIST changes: +B-12100T2 PO
== END ==
LOC: M LABSMTC 11:44
PROVIDERS: ATTEND Anesthesiology
DX: Z01.812 Encounter for preprocedural laboratory examination (principal); Z20.822 Contact with and (suspected) exposure to COVID-19

== ENCOUNTER 2021-04-09 10:09 | Day surgery (SDC) | payer MEDICARE ==
[~2021-04-09] VITALS: Ht 177.8 cm; Wt 119.2 kg
[~2021-04-09 10:09] MED LIST changes: +NS 1,000 ML IV ONE
[2021-04-09] MEDS ORDERED: LIDOCAINE 2% 100MG/5ML SDV (FOR ANES.) As Ordered ONE (10:23)
[2021-04-09] MEDS ORDERED: propofoL 500 MG/50 ML VIAL As Ordered ONE (10:23)
[2021-04-09] MEDS ORDERED: CIAL5TAB PO (10:39)
[2021-04-09] MEDS ORDERED: fentaNYL 100 MCG/2 ML INJECTION (J3010) As Ordered ONE (10:40)
--- NOTE | 2021-04-09 12:20 | ROOR ---
Patient Name: Kal Eason Procedure Date: 04/09/2021 12:03 PM Date of : 1945 Age: 75 Room: [facility] Gender: Male Note Status: Finalized Procedure: Upper Endoscopy + Biopsies Indications: Heartburn, Exclusion of Barrios's esophagus Providers: Shawn Tan MD Referring MD: CHRISTOFER MCGUIRE MD Requesting Provider: Medicines: Monitored Anesthesia Care Complications: No immediate complications. Procedure: Pre-Anesthesia Assessment: - The heart rate, respiratory rate, oxygen saturations, blood pressure, adequacy of pulmonary ventilation, and response to care were monitored throughout the procedure. The Endoscope was introduced through the mouth, and advanced to the second part of duodenum. The upper GI endoscopy was accomplished without difficulty. The patient tolerated the procedure well. Findings: The Z-line was variable and was found 40 cm from the incisors. Multiple biopsies were obtained with cold forceps for evaluation to rule out Barrios's Esophagus randomly at the gastroesophageal junction. Diffuse mild inflammation characterized by congestion (edema) and erythema was found in the gastric antrum. Biopsies were taken with a cold forceps for Helicobacter pylori testing. The exam of the duodenum was otherwise normal. Impression: - Z-line variable, 40 cm from the incisors. - Mucosal changes suspicious for gastritis. Biopsied. - Multiple biopsies were obtained at the gastroesophageal junction. - The examination was otherwise normal. Recommendation: - Patient has a contact number available for emergencies. The signs and symptoms of potential delayed complications were discussed with the patient. Return to normal activities tomorrow. Written discharge instructions were provided to the patient. - High fiber diet. - Discharge patient to home. - Follow an antireflux regimen. - Continue present medications. - Await pathology results. - Telephone GI clinic for pathology results in 1 week. - Return to referring physician. - The findings and recommendations were discussed with the patient's family. Procedure Code(s): --- Professional --- 48224, Esophagogastroduodenoscopy, flexible, transoral; with biopsy, single or multiple Diagnosis Code(s): --- Professional --- K22.8, Other specified diseases of esophagus K31.89, Other diseases of stomach and duodenum R12, Heartburn CPT copyright 2019 [employer]. All rights reserved. The codes documented in this report are preliminary and upon java web services developer review may be revised to meet current compliance requirements. Shawn Tan MD Shawn Tan MD 04/09/2021 12:19:52 PM Electronically signed by Shawn Tan MD Number of Addenda: 0 Note Initiated On: 04/09/2021 12:03 PM Estimated Blood Loss: Estimated blood loss: none.
--- NOTE | 2021-04-09 12:47 | ROOR ---
Patient Name: Kal Eason Procedure Date: 04/09/2021 12:03 PM Date of : 1945 Age: 75 Room: [facility] Gender: Male Note Status: Finalized Procedure: Total Colonoscopy to Cecum + Biopsy Polypectomy Indications: High risk colon cancer surveillance: Personal history of colonic polyps, Last colonoscopy: 2014 Providers: Shawn Tan MD Referring MD: CHRISTOFER MCGUIRE MD Requesting Provider: Medicines: Monitored Anesthesia Care Complications: No immediate complications. Procedure: Pre-Anesthesia Assessment: - The heart rate, respiratory rate, oxygen saturations, blood pressure, adequacy of pulmonary ventilation, and response to care were monitored throughout the procedure. The Colonoscope was introduced through the anus and advanced to the cecum, identified by appendiceal orifice and ileocecal valve. The colonoscopy was performed without difficulty. The patient tolerated the procedure well. The quality of the bowel preparation was excellent. Findings: The perianal and digital rectal examinations were normal. Non-bleeding internal hemorrhoids were found during retroflexion. The hemorrhoids were small and Grade I (internal hemorrhoids that do not prolapse). Scattered small-mouthed diverticula were found in the recto-sigmoid colon, sigmoid colon and descending colon. Two sessile polyps were found in the ascending colon. The polyps were small in size. These polyps were removed with a jumbo cold forceps. Resection and retrieval were complete. The exam was otherwise without abnormality on direct and retroflexion views. Impression: - Non-bleeding internal hemorrhoids. - Diverticulosis in the recto-sigmoid colon, in the sigmoid colon and in the descending colon. - Two small polyps in the ascending colon, removed with a jumbo cold forceps. Resected and retrieved. - The examination was otherwise normal on direct and retroflexion views. - The examination was otherwise normal. Recommendation: - Patient has a contact number available for emergencies. The signs and symptoms of potential delayed complications were discussed with the patient. Return to normal activities tomorrow. Written discharge instructions were provided to the patient. - High fiber diet. - Discharge patient to home. - Continue present medications. - Await pathology results. - Telephone GI clinic for pathology results in 1 week. - Repeat colonoscopy for surveillance based on pathology results. - Return to referring physician. - The findings and recommendations were discussed with the patient's family. Procedure Code(s): --- Professional --- 41710, Colonoscopy, flexible; with biopsy, single or multiple Diagnosis Code(s): --- Professional --- Z86.010, Personal history of colonic polyps K64.0, First degree hemorrhoids K63.5, Polyp of colon K57.30, Diverticulosis of large intestine without perforation or abscess without bleeding CPT copyright 2019 [employer]. All rights reserved. The codes documented in this report are preliminary and upon news director review may be revised to meet current compliance requirements. Shawn Tan MD Shawn Tan MD 04/09/2021 12:46:43 PM Electronically signed by Shawn Tan MD Number of Addenda: 0 Note Initiated On: 04/09/2021 12:03 PM Estimated Blood Loss: Estimated blood loss: none.
[2021-04-09 13:30] VITALS: BP 170/80
== END 2021-04-09 13:30 | disposition home or self-care (01) ==
LOC: M OPP 10:09
PROVIDERS: ATTEND Internal Medicine Gastroenterology
DX: Z12.11 Encounter for screening for malignant neoplasm of colon (principal); Z86.010 Personal history of colon polyps; D12.2 Benign neoplasm of ascending colon; K57.30 Diverticulosis of large intestine without perforation or abscess without bleeding; K64.0 First degree hemorrhoids; K22.8 Other specified diseases of esophagus; K31.89 Other diseases of stomach and duodenum; R12 Heartburn; G47.30 Sleep apnea, unspecified; Z79.82 Long term (current) use of aspirin; Z79.899 Other long term (current) drug therapy; Z88.8 Allergy status to other drugs, medicaments and biological substances
CPT/HCPCS: 43239; 45380; 88305; 88342; J3010

== ENCOUNTER → 2021-06-18 | Outpatient (REF) | payer MEDICARE ==
[~2021-06-18] MED LIST changes: -NS 1,000 ML IV ONE
== END ==
LOC: M WUC 15:58 → M LAB REF 15:58
PROVIDERS: ATTEND Urology
DX: Z12.5 Encounter for screening for malignant neoplasm of prostate (principal); R97.20 Elevated prostate specific antigen [PSA]

== ENCOUNTER → 2022-05-19 | Outpatient (CLI) | payer MEDICARE ==
[~2022-05-19] MED LIST changes: -D31000TA2 PO; +LOSA100T45 PO; -LOSA100T50 PO; +LOSA25TA13 PO; -LOSA25TA14 PO; +VITA100093 PO
== END ==
LOC: M WUC 10:34
PROVIDERS: ATTEND Nurse Practitioner Adult Health
DX: R05.9 Cough, unspecified (principal)

== ENCOUNTER → 2022-06-22 | Outpatient (CLI) | payer MEDICARE | LOC: M PLALAB 11:21 | PROVIDERS: ATTEND Urology | DX: Z12.5 Encounter for screening for malignant neoplasm of prostate (principal) ==

== ENCOUNTER → 2024-05-12 | Outpatient (CLI) | payer MEDICARE ==
[~2024-05-12] MED LIST changes: +FLOM0.4C39 PO; -LOSA100T45 PO; +LOSA100T46 PO; +MONT-5 PO; -ROSU10TA6 PO; +ROSU10TA61 PO; -SING10TA32 PO
== END ==
LOC: M RAD 10:47
PROVIDERS: ATTEND Internal Medicine
DX: D44.0 Neoplasm of uncertain behavior of thyroid gland (principal); I10 Essential (primary) hypertension

== ENCOUNTER → 2024-05-18 | Outpatient (CLI) | payer MEDICARE | LOC: M PLAIMG 10:19 | PROVIDERS: ATTEND Physician Assistant | DX: I35.8 Other nonrheumatic aortic valve disorders (principal); I34.0 Nonrheumatic mitral (valve) insufficiency; R06.02 Shortness of breath ==

== ENCOUNTER → 2024-06-26 | Outpatient (CLI) | payer MEDICARE ==
[2024-06-26 13:50] LABS: FREE T4 1.21 NG/DL (0.89-1.76)
[2024-06-26 13:51] LABS: THYROID STIMULATING HORMONE 1.012 uIU/ML (0.55-4.78)
== END ==
LOC: M PLALAB 11:05
PROVIDERS: ATTEND Internal Medicine Endocrinology, Diabetes & Metabolism
DX: E04.2 Nontoxic multinodular goiter (principal)

== ENCOUNTER → 2024-07-18 | Outpatient (REF) | payer MEDICARE | LOC: M LAB REF 15:23 | PROVIDERS: ATTEND Internal Medicine Endocrinology, Diabetes & Metabolism | DX: E04.2 Nontoxic multinodular goiter (principal) ==